=== PATIENT | female | born 1990 | race Caucasian/White ===

== ENCOUNTER 2021-07-13 09:53 | Outpatient (CLI) | payer BC ==
[~2021-07-13 09:53] MED LIST: COLACE 100MG C100 MG PO
== END 2021-07-13 11:25 | disposition home or self-care (01) ==
LOC: GENOP 09:53
DX: O47.03 False labor before 37 completed weeks of gestation, third trimester (principal); O99.013 Anemia complicating pregnancy, third trimester; D64.9 Anemia, unspecified; Z3A.34 34 weeks gestation of pregnancy
CPT/HCPCS: 59025